=== PATIENT | male | born 1975 | race Caucasian/White ===

== ENCOUNTER 2016-03-02 21:15 | Emergency (ER) | payer MEDICAID ==
[~2016-03-02] VITALS: Ht 175.3 cm; Wt 120.0 kg
[~2016-03-02 21:15] MED LIST: CIPR500T4 PO; DOCU-144 PO; IBUP-1542 PO; METR500T14 PO; POLY17PO6 PO; TAMS-14 PO; UDMOM PO
[2016-03-02 21:20] VITALS: Ht 175.3 cm; Wt 120.0 kg
== END 2016-03-02 23:30 | disposition left against medical advice (07) ==
LOC: FTE 21:15
DX: Z53.21 Procedure and treatment not carried out due to patient leaving prior to being seen by health care provider (principal)

== ENCOUNTER 2016-04-07 08:46 | Day surgery (SDC) | payer OTHER ==
--- NOTE | 2016-04-06 20:27 | PREOPHP ---
DATE OF ADMISSION: 04/07/2016 DATE OF ADMISSION: 04/07/2016 HISTORY OF PRESENT ILLNESS: This 40-year-old gentleman is admitted for elective pterygium excision of the left eye. 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 The patient denies any other history of eye disease or injury. CURRENT MEDICATIONS: Includes Naproxen. ALLERGIES: THERE ARE NO KNOWN ALLERGIES. EYES: Visual acuity with correction is 20/20 in the right eye and 20/40 in the left eye. 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 The remainder of the eye examination is entirely within normal limits. DIAGNOSIS: Pterygium, left eye. PLAN: Pterygium excision with mitomycin C application and rotating conjunctival graft, left eye. T he risks and alternatives to the surgery as well as the potential for recurrence of the pterygium gr owth have been discussed with the patient, the patient understands this, and desires to proceed with surgery. Dictated By: JENY RAMIREZ/FERNANDO Conf#: [id number] DID#: [id number]
[~2016-04-07] VITALS: Ht 182.9 cm; Wt 117.0 kg
[2016-04-07] VITALS (13 sets, daily range): BP systolic 116–141; BP diastolic 59–82; PULSE 74–84; RESP 6–18; Ht 182.9 cm; Wt 117.0 kg
[~2016-04-07 08:46] MED LIST changes: +BALANCED SALT SOLN 15 ML OPH IRRIG ONE
[2016-04-07] MEDS ORDERED: MITOMYCIN 5 MG INJ IV SCH (10:30)
[2016-04-07] MEDS ORDERED: hydrALAzine 20 MG INJ IV PRN (12:00)
[2016-04-07] MEDS ORDERED: LABETALOL HCL 20MG INJ IV PRN (12:00)
[2016-04-07] MEDS ORDERED: HYDROmorphONE (0.2 MG/ML) 10ML SYG IV PRN ×3 (12:00)
[2016-04-07] MEDS ORDERED: EPHEDrine SULFATE 50 MG/5 ML SYG IV PRN (12:00)
[2016-04-07] MEDS ORDERED: MIDAZOLAM 1 MG/ML 2 ML INJ IV PRN (12:00)
[2016-04-07] MEDS ORDERED: ONDANSETRON 4 MG INJ IV PRN (12:00)
[2016-04-07] MEDS ORDERED: OXYCODONE/ACETAMINOPHEN (5/325) TAB PO PRN ×2 (12:00)
[2016-04-07] MEDS ORDERED: ATROPINE 1 MG/10 ML SYRINGE IV PRN (12:00)
[2016-04-07] MEDS ORDERED: MEPERIDINE 25 MG INJ IV PRN (12:00)
[2016-04-07] MEDS ORDERED: FENTAnyl 50 MCG/ML VIAL IV PRN ×2 (12:00)
[2016-04-07] MEDS ORDERED: DIPHENHYDRAMINE 50 MG INJ IV PRN (12:00)
[2016-04-07] MEDS ORDERED: morphine (1 MG/ML) 10ML SYRINGE IV PRN ×3 (12:00)
[2016-04-07] MEDS ORDERED: PROPOFOL 20 ML ONE (12:01)
[2016-04-07] MEDS ORDERED: LIDOCAINE 2% (SDV) 5 ML INJ ONE (12:01)
[2016-04-07] MEDS ORDERED: NEOSTIGMINE 3 MG/3 ML SYRINGE ONE (12:01)
[2016-04-07] MEDS ORDERED: GLYCOPYRROLATE 0.4 MG INJ ONE (12:01)
[2016-04-07] MEDS ORDERED: ROCURONIUM 50 MG INJ ONE (12:01)
[2016-04-07] MEDS ORDERED: FENTAnyl 50 MCG/ML VIAL ONE (12:01)
[2016-04-07] MEDS ORDERED: MIDAZOLAM 1 MG/ML 2 ML INJ ONE ×2 (12:01→12:48)
[2016-04-07] MEDS ORDERED: LIDOCAINE 2%/EPI 30 ML INJ ONE (12:35)
[2016-04-07] MEDS ORDERED: HYDROmorphONE (0.2 MG/ML) 10ML SYG IV ONE (13:31)
[2016-04-07] MEDS ORDERED: ONDANSETRON 4 MG INJ ONE (13:31)
--- NOTE | 2016-04-07 13:33 | OPR ---
DATE OF OPERATION: 04/07/2016 PREOPERATIVE DIAGNOSIS: Pterygium, left eye. POSTOPERATIVE DIAGNOSIS: Pterygium, left eye. OPERATION PERFORMED: Pterygium excision with mitomycin C application, and conjunctival graft closur e, left eye. SURGEON: Jeny Montemayor MD ANESTHESIOLOGIST: Dr. Lopez DESCRIPTION OF PROCEDURE: Patient brought to the operating room on an eye gurney, positioned approp riately, attached to electrocardiogram monitor, and given oxygen via nasal cannula. After patient was prepped and draped in the usual sterile manner, a speculum was inserted between th e lids of the left eye. Lidocaine 2% with epinephrine was injected beneath the conjunctival bed of the pterygium, and then, using Chelly scissors, the base of the pterygium was excised and brought to the corneoscleral limbus, where a curved blade was used to dissect the pterygium from the surface of the cornea. This was submitted en bloc for gross pathological examination. Hemostasis was then obtained by means of pressure and cauterization on the surface of the sclera adjacent to the nasal limbus. Following this, a shirley-tipped bur was used to slovak the surface of the cornea from whic h the pterygium had been excised until a smooth surface was present. Attention was then turned to the bare sclera where a Weck cell sponge impregnated with mitomycin C 0 .3% was placed on the surface of the sclera for a period of 1 minute and then was copiously irrigate d with balanced salt solution for an additional minute. Closure of the conjunctival defect was obta ined by relaxing incision in the superior and inferior conjunctiva, and closure with 8-0 Vicryl sutu res. Two sutures were placed and tied in interrupted fashion. At the end of the procedure, it was n oted that hemostasis was present. TobraDex ointment was placed on the eye after the speculum had be en removed, and then a pressure patch was applied. The patient then left the operating room in satisfactory condition. Dictated By: JENY RAMIREZ/FERNANDO Conf#: [id number] DID#: [id number]
== END 2016-04-07 15:20 | disposition home or self-care (01) ==
LOC: SDS 08:46
PROVIDERS: ATTEND Ophthalmology
DX: H11.002 Unspecified pterygium of left eye (principal); E66.01 Morbid (severe) obesity due to excess calories; Z68.35 Body mass index [BMI] 35.0-35.9, adult
CPT/HCPCS: 65426; J1170; J2250; J2405; J3010; J9280; Z7512; Z7610; J2710

== ENCOUNTER 2018-06-21 22:10 | Emergency (ER) | payer MEDICAID, OTHER ==
[~2018-06-21] VITALS: Ht 185.4 cm; Wt 129.6 kg
[2018-06-21 22:17] VITALS: Ht 185.4 cm; Wt 129.6 kg
[2018-06-22] MEDS ORDERED: morphine 4 MG/ML VIAL IV STA (02:28)
[2018-06-22] MEDS ORDERED: ONDANSETRON 4 MG INJ IV STA (02:28)
--- NOTE | 2018-06-22 02:54 | ERD ---
ER Documentation Chief Complaint Chief Complaint DX WITH SHINGLES 3 DAYS AGO, NOW C/O BLOOD IN STOOL HPI 42-year-old male presents with complaint of blood in stool as well as abdominal pain. States his abdominal pain is diffuse. States the pain is intermittent, made worse with palpation. Denies any treatments for the abdominal pain. States that the blood is bright red. Denies any history of hemorrhoids. In addition, he states that he was just diagnosed with shingles 3 days ago. ROS All systems reviewed and are negative except as per history of present illness. Medications Home Meds No Active Prescriptions or Reported Meds Allergies Allergies: Coded Allergies: No Known Allergy (Unverified , 04/07/16) PMhx/Soc History of Surgery: No Anesthesia Reaction: No Hx Neurological Disorder: No Hx Respiratory Disorders: No Hx Cardiac Disorders: No Hx Psychiatric Problems: No Hx Miscellaneous Medical Probl: Yes (SHINGLES ) Hx Alcohol Use: No Hx Substance Use: No Hx Tobacco Use: No FmHx Family History: No diabetes, No coronary disease, No other Physical Exam Vitals Vital Signs Date Temp Pulse Resp B/P (MAP) Pulse Ox O2 O2 Flow FiO2 Time Delivery Rate 06/21/18 97.4 80 20 142/77 98 22:17 (98) Physical Exam Const: No acute distress Head: Atraumatic Eyes: Normal Conjunctiva ENT: Normal External Ears, Nose and Mouth. Neck: Full range of motion. No meningismus. Resp: Clear to auscultation bilaterally Cardio: Regular rate and rhythm, no murmurs Abd: Diffuse tenderness to palpation with guarding and rigidity. Patient refused rectal exam. Skin: No petechiae or rashes Back: No midline or flank tenderness Ext: No cyanosis, or edema Neur: Awake and alert Psych: Normal Mood and Affect Result Diagram: 06/22/18 0247 06/22/18 0247 Results 24 hrs Laboratory Tests Test 06/22/18 02:47 White Blood Count 8.5 10^3/ul Red Blood Count 4.79 10^6/ul Hemoglobin 13.4 g/dl Hematocrit 39.8 % Mean Corpuscular Volume 83.1 fl Mean Corpuscular Hemoglobin 28.0 pg Mean Corpuscular Hemoglobin Concent 33.7 g/dl Red Cell Distribution Width 13.2 % Platelet Count 296 10^3/UL Mean Platelet Volume 9.1 fl Immature Granulocytes % 0.500 % Neutrophils % 61.1 % Lymphocytes % 26.0 % Monocytes % 8.8 % Eosinophils % 2.9 % Basophils % 0.7 % Nucleated Red Blood Cells % 0.0 /100WBC Immature Granulocytes # 0.040 10^3/ul Neutrophils # 5.2 10^3/ul Lymphocytes # 2.2 10^3/ul Monocytes # 0.8 10^3/ul Eosinophils # 0.3 10^3/ul Basophils # 0.1 10^3/ul Nucleated Red Blood Cells # 0.0 10^3/ul Urine Color STRAW Urine Clarity CLEAR Urine pH 5.0 Urine Specific [place] 1.008 Urine Ketones NEGATIVE mg/dL Urine Nitrite NEGATIVE mg/dL Urine Bilirubin NEGATIVE mg/dL Urine Urobilinogen NEGATIVE mg/dL Urine Leukocyte Esterase NEGATIVE Hiram/ul Urine Microscopic RBC 0 /HPF Urine Microscopic WBC 0 /HPF Urine Hemoglobin 1+ mg/dL Urine Glucose NEGATIVE mg/dL Urine Total Protein NEGATIVE mg/dl Sodium Level 143 mmol/L Potassium Level 4.2 mmol/L Chloride Level 107 mmol/L Carbon Dioxide Level 26 mmol/L Anion Gap 10 Blood Urea Nitrogen 10 mg/dl Creatinine 0.83 mg/dl Est Glomerular Filtrat Rate mL/min > 60 mL/min Glucose Level 114 mg/dl Calcium Level 9.9 mg/dl Total Bilirubin 1.0 mg/dl Direct Bilirubin 0.00 mg/dl Indirect Bilirubin 1.0 mg/dl Aspartate Amino Transf (AST/SGOT) 43 IU/L Alanine Aminotransferase (ALT/SGPT) 59 IU/L Alkaline Phosphatase 96 IU/L Total Protein 7.8 g/dl Albumin 4.5 g/dl Globulin 3.30 g/dl Albumin/Globulin Ratio 1.36 Lipase 108 U/L Current Medications Medications Dose Sig/Eren Start Time Status Last (Trade) Ordered Route PRN Stop Time Admin Dose Reason Admin Morphine 4 mg ONCE STAT 06/22/18 DC 06/22/18 Sulfate IV 02:28 06/22/18 02:52 (morphine) 02:30 Ondansetron 4 mg ONCE STAT 06/22/18 DC 06/22/18 HCl (Zofran IV 02:28 06/22/18 02:52 Inj) 02:30 Sodium 100 ml @ ud STK-MED 06/22/18 DC 06/22/18 Chloride ONCE .ROUTE 04:07 06/22/18 04:10 04:08 Iohexol 150 ml STK-MED 06/22/18 DC 06/22/18 (Omnipaque ONCE .ROUTE 04:07 06/22/18 04:10 300mg/ ml) 04:08 Procedures/MDM DIAGNOSTIC IMAGING REPORT Patient: CLAUDIA BAHENA : 1975 Age: 42 Sex: M MR #: [id number] DOS: 06/22/18 0228 Ordering MD: MITRA BEST Location: [facility] Room/Bed: PROCEDURE: CT ABDOMEN/PELVIS WITH CONTRAST CLINICAL INDICATION: 42-year-old male with abdominal pain TECHNIQUE: The study was performed utilizing a [employer] ExpressT 64-slice CT scanner. Direct axial sections were obtained through the abdomen and pelvis with the use of 100 cc of Omnipaque-300 nonionic intravenous contrast material. Sagittal and coronal reformations were obtained. One or more of the following dose reduction techniques were utilized: automated exposure control, adjustment of the mA and/or kV according to patient's size and/or use of iterative reconstruction technique. DICOM images are available. The images were reviewed on a PACS workstation. CTD/vol = 23.72 mGy; Total Exam DLP = 1616.19 mGy.cm. COMPARISON: CT abdomen/pelvis October 08, 2015. FINDINGS: There is minimal bibasilar subsegmental atelectasis. There is no evidence for significant pleural effusion. The liver has a normal size and contour without focal areas of abnormal density or contrast enhancement. No intrahepatic nor extrahepatic biliary ductal dilatation is seen. Surgical clips are seen within the gallbladder fossa from prior cholecystectomy. The pancreas is without areas of abnormal attenuation or contrast enhancement. This spleen is identified and has a normal size without abnormal density or contrast enhancement. The adrenal glands are unremarkable. The kidneys are functional bilaterally without abnormal density. No hydroureteronephrosis nor nephroureterolithiasis is evident. The urinary bladder contains urine. There is mild retained stool within the ascending and transverse colon without obstruction. The appendix is visualized and is without edema or surrounding inflammatory reaction. The prostate is not enlarged. Phleboliths are seen within the pelvis. There is no significant free fluid. The aortoiliac vessels are without aneurysmal dilatation. Mild degenerative changes are seen within the spine. IMPRESSION: 1. Status post cholecystectomy. 2. Mild retained stool within the proximal colon without obstruction. 3. No CT evidence for appendicitis. 4. Mild degenerative changes within the spine. .Joey Blanco MD, Date Time Electronically viewed and signed by .Joey Blanco MD, on 06/22/2018 04:45 .M/ CC: MITRA BEST [id number] MDM: Based on patient history and exam decision was made to do CT abdomen with contrast. Results within normal limits. Patient refused rectal exam so I was not able to palpate for internal hemorrhoids or fissures. Given patient's c omplaint of bright red blood, this would be the most likely etiology. I have low suspicion for symptomatic anemia, diverticulitis, diverticulosis, appendicitis, acute abdomen, cholecystitis, or any other emergent condition. Patient advised to take Tylenol for continued stomach pain. Patient given education regarding possible hemorrhoids. Patient discharged with strict ER precautions. Patient advised to follow up with PMD. All questions answered at discharge. Departure Diagnosis: Primary Impression: BRBPR (bright red blood per rectum) Condition: Stable MITRA BEST June 22, 2018 02:54
[2018-06-22] MEDS ORDERED: IOHEXOL 300MG/ML 150 ML BTL ONE (04:07)
[2018-06-22] MEDS ORDERED: SOD CHLORIDE 0.9% 100 ML ONE (04:07)
[2018-06-22] MEDS ORDERED: DICY10CA40 PO (05:13)
[2018-06-22] MEDS ORDERED: ACET500C5 PO (05:13)
[2018-06-22 05:29] VITALS: BP 125/77; PULSE 77; RESP 18
== END 2018-06-22 05:30 | disposition home or self-care (01) ==
LOC: FTE 22:10
DX: K62.5 Hemorrhage of anus and rectum (principal)
CPT/HCPCS: 36415; 74177; 80053; 81001; 83690; 85025; 96374; 96375; J2270; J2405; Q9967; Z7502; Z7610